=== PATIENT | male | born 1980 | race African-American/Black ===

== ENCOUNTER 2017-02-12 23:24 | Emergency (ER) | payer MEDICARE ==
[2017-02-12 23:28] VITALS: BP 109/70
[2017-02-12] MEDS ORDERED: FENTANYL PF 100 MCG/2 ML VIAL. IV PRN (23:45)
[2017-02-12] MEDS ORDERED: IV NORMAL SALINE 1000ML BAG 1,000 ML IV SCH (23:55)
[2017-02-13 00:03] LABS: BILIRUBIN,URINE NEGATIVE (NEG); GLUCOSE,URINE NEGATIVE (NEG); NITRITE,URINE NEGATIVE (NEG); PH,URINE 6.5; PROTEIN,URINE 30 mg/dL (NEG-TRACE)
[2017-02-13 00:08] LABS: BACTERIA,URINE 0 /HPF (0-FEW); WBC,URINE OCC /HPF (0-4)
[2017-02-13 00:09] LABS: SQUAMOUS EPITHELIAL CELL,UR FEW /LPF
[2017-02-13] MEDS ORDERED: ONDA4TAB10 SL (00:15)
[2017-02-13] MEDS ORDERED: MORP15TA PO (00:15)
--- NOTE | 2017-02-13 00:16 | PHYS DOC ---
Past Medical History Past Medical History: No Pertinent History Past Surgical History: No Surgical History Alcohol Use: Occasionally Drug Use: Marijuana Adult General Chief Complaint Chief Complaint: FLANK PAIN HPI HPI 36-year-old male presenting to the emergency department with left-sided flank pain for the past 3 days. His pain is sharp moderate intermittent and without alleviating factors. he denies hematuria. he denies history of kidney stone. Review of systems is negative for nausea vomiting fevers chills chest pain shortness of breath. All other review of systems is negative unless otherwise noted in history of present illness. Review of Systems Review of Systems SEE ABOVE. Current Medications Current Medications Current Medications Medications (Trade) Dose Ordered Sig/Eufemia Start Time Stop Time Status Last Admin Dose Admin Fentanyl Citrate 50 mcg 50 mcg PRN Q15MIN PRN 02/12/17 23:45 02/13/17 01:09 DC 02/13/17 00:31 50 MCG Sodium Chloride (Iv Sodium Chloride 0.9% 1000ml Bag) 1,000 ml @ 1,000 mls/hr Q1H 02/12/17 23:55 02/13/17 00:54 DC 02/12/17 23:55 1,000 MLS/HR Allergies Allergies Allergies Coded Allergies Type Severity Reaction Last Updated Verified No Known Drug Allergies 02/12/17 No Physical Exam Physical Exam Constitutional: Well developed, well nourished, no acute distress, non-toxic appearance. HENT: Normocephalic, atraumatic, bilateral external ears normal, oropharynx moist, no oral exudates, nose normal. [] Eyes: PERRLA, EOMI, conjunctiva normal, no discharge. Neck: Normal range of motion, no tenderness, supple, no stridor. [] Cardiovascular:Heart rate regular rhythm, no murmur Lungs & Thorax: Bilateral breath sounds clear to auscultation [] Abdomen: Soft nontender abdomen without rebound tenderness or guarding present. Negative McBurneys point. Negative Medina sign. No ecchymosis present. Skin: Warm, dry, no erythema, no rash. Back: No tenderness, CVA tenderness present. Extremities: No tenderness, no cyanosis, no clubbing, ROM intact, no edema. [] Neurologic: Alert and oriented X 3, normal motor function, normal sensory function, no focal deficits noted. Psychologic: Affect normal, judgement normal, mood normal. [] Current Patient Data Vital Signs Vital Signs Date Time Temp Pulse Resp B/P Pulse Ox O2 Delivery O2 Flow Rate FiO2 02/12/17 23:28 97.9 67 22 109/70 99 Room Air 97.9 Lab Values Laboratory Tests Test 02/12/17 23:55 02/13/17 00:22 Urine Collection Type Unknown Urine Color Christy Urine Clarity Cloudy Urine pH 6.5 Urine Specific [place] >=1.030 Urine Protein 30mg/dL (NEG-TRACE) Urine Glucose (UA) Negativemg/dL (NEG) Urine Ketones (Stick) Tracemg/dL (NEG) Urine Blood Negative (NEG) Urine Nitrite Negative (NEG) Urine Bilirubin Negative (NEG) Urine Urobilinogen Dipstick 1.0mg/dL (0.2 mg/dL) Urine Leukocyte Esterase Negative (NEG) Urine RBC 6-10/HPF (0-2) Urine WBC Occ/HPF (0-4) Urine Squamous Epithelial Cells Few/LPF Urine Bacteria 0/HPF (0-FEW) Urine Mucus Marked/LPF White Blood Count 10.0x10^3/uL (4.0-11.0) Red Blood Count 4.53x10^6/uL (4.30-5.70) Hemoglobin 14.5g/dL (13.0-17.5) Hematocrit 43.8% (39.0-53.0) Mean Corpuscular Volume 97fL (79-100) Mean Corpuscular Hemoglobin 32pg (25-35) Mean Corpuscular Hemoglobin Concent 33g/dL (31-37) Red Cell Distribution Width 13.1% (11.5-14.5) Platelet Count 196x10^3/uL (140-400) Neutrophils (%) (Auto) 71% (31-73) Lymphocytes (%) (Auto) 23% (24-48) L Monocytes (%) (Auto) 5% (0-9) Eosinophils (%) (Auto) 1% (0-3) Basophils (%) (Auto) 1% (0-3) Neutrophils # (Auto) 7.1x10^3uL (1.8-7.7) Lymphocytes # (Auto) 2.2x10^3/uL (1.0-4.8) Monocytes # (Auto) 0.5x10^3/uL (0.0-1.1) Eosinophils # (Auto) 0.1x10^3/uL (0.0-0.7) Basophils # (Auto) 0.1x10^3/uL (0.0-0.2) Sodium Level 145mmol/L (136-145) Potassium Level 3.6mmol/L (3.5-5.1) Chloride Level 105mmol/L (98-107) Carbon Dioxide Level 27mmol/L (21-32) Anion Gap 13 (6-14) Blood Urea Nitrogen 19mg/dL (8-26) Creatinine 1.0mg/dL (0.7-1.3) Estimated GFR (Cockcroft-Gault) 101.7 Glucose Level 128mg/dL (70-99) H Calcium Level 8.5mg/dL (8.5-10.1) Laboratory Tests 02/13/17 00:22 Laboratory Tests 02/13/17 00:22 EKG EKG [] Radiology/Procedures Radiology/Procedures [] Course & Med Decision Making Course & Med Decision Making Pertinent Labs and Imaging studies reviewed. (See chart for details) [] 36-year-old male presenting with left-sided flank pain. Urinalysis obtained along with blood work. Vital signs afebrile with a normal heart rate. Pertinent physical exam findings showed mild left CVA tenderness. Urinalysis negative for infection. No blood present. specific gravity elevated. The patient was treated with IV fluids and pain medication. On reexamination he had improved and was feeling better. He was subsequently discharged home to follow-up with his PCP over the next 2-3 days to return to the emergency department if his symptoms worsened. [id number] discharge instructions and return precautions given. Patient comfortable with plan. Dragon Disclaimer Dragon Disclaimer This electronic medical record was generated, in whole or in part, using a voice recognition dictation system. Departure Departure Impression: Primary Impression: Left flank pain Disposition: HOME, SELF-CARE Condition: STABLE Referrals: BERTA LEBLANC MD Patient Instructions: Flank Pain Additional Instructions: Thank you for allowing us to participate in your care today. Followup with your primary care physician in 3 days if your symptoms do not improve. If you do not have a primary care provider you can ask for a list of our primary care providers. Return to the emergency department you have any new or concerning findings. This should be evaluated by the primary care physician and any necessary consulting services for continued management within a few days after discharge. Return to emergency room if you have any new or concerning symptoms including but not limited to fever, chills, nausea, vomiting, intractable pain, any new rashes, chest pain, shortness of air, uncontrolled bleeding, difficulty breathing, and/or vision loss. You may have been prescribed medication that can change in your level of thinking and ability to operate machinery. These medications include hydrocodone and Ativan. Also, Benadryl has been known to do this as well. Be sure to check with your pharmacist and ask if the medications you've prescribed can affect your level of consciousness. I recommend not operating heavy machinery or driving while on medication such as these. Scripts Ondansetron (Zofran Odt)4 Mg Tab.rapdis1 Tab SL PRN Q8HRS PRN NAUSEA #6 TAB Prov:MAIDA MATHUR MD 02/13/17 Morphine Sulfate 15 Mg Tablet1 Tab PO PRN Q6-8HRS PRN SEVERE PAIN #8 TAB Prov:MAIDA MATHUR MD 02/13/17 MAIDA MATHUR MD Feb 13, 2017 00:16
[2017-02-13 00:27] LABS: BASO # 0.1 x10^3/uL (0.0-0.2); BASO % 1 % (0-3); EOS % 1 % (0-3); HEMATOCRIT 43.8 % (39.0-53.0); HEMOGLOBIN 14.5 g/dL (13.0-17.5); LYMPH # 2.2 x10^3/uL (1.0-4.8); LYMPH % 23 % (24-48); MEAN CORPUSCULAR HEMOGLOBIN 32 pg (25-35); MEAN CORPUSCULAR HGB CONC 33 g/dL (31-37); MEAN CORPUSCULAR VOLUME 97 fL (79-100); MONO % 5 % (0-9); NEUT % 71 % (31-73); PLATELET COUNT 196 x10^3/uL (140-400); RED BLOOD COUNT 4.53 x10^6/uL (4.30-5.70); RED CELL DISTRIBUTION WIDTH 13.1 % (11.5-14.5)
[2017-02-13 00:40] LABS: CALCIUM 8.5 mg/dL (8.5-10.1); GFR 101.7; POTASSIUM 3.6 mmol/L (3.5-5.1)
--- NOTE | 2017-02-13 00:40 | RAD ---
INDICATION: Abdomen pain. COMPARISON: None TECHNIQUE: Axial CT images obtained through the abdomen and pelvis. Intravenous contrast was not utilized. One or more of the following individualized dose reduction techniques were utilized for this examination: 1. Automated exposure control; 2. Adjustment of the mA and/or kV according to patient size; 3. Use of iterative reconstruction technique. FINDINGS: Abdominal aorta not aneurysmal. No intrahepatic bile duct dilation. Pancreas poorly evaluated without contrast. Spleen unremarkable. No hydronephrosis. No definite evidence of small bowel obstruction. Bladder decompressed large amount of stool within the distal colon. Moderate amount of stool elsewhere within the colon. The cecum is distended up to 76 millimeters. Appendix is not visualized given the lack of intravenous and oral contrast as well as lack of intra-abdominal fat. Mild scoliotic curvature spine IMPRESSION: There is moderate amount of stool seen throughout the colon with a large amount seen distally. Would correlate with symptoms of constipation. No hydronephrosis. Electronically signed by: Freddie Duval (Feb 13, 2017 00:39:26)
== END 2017-02-13 01:02 | disposition home or self-care (01) ==
LOC: ER 23:24
DX: R10.9 Unspecified abdominal pain (principal); K59.00 Constipation, unspecified; F12.10 Cannabis abuse, uncomplicated
CPT/HCPCS: 36415; 74176; 80048; 81001; 85027; 96361; 96374; 99285; J3010; J7030

== ENCOUNTER 2017-02-16 09:27 | Emergency (ER) | payer MEDICARE ==
[~2017-02-16] VITALS: Ht 185.4 cm; Wt 65.8 kg
[~2017-02-16 09:27] MED LIST: MORP15TA PO; ONDA4TAB10 SL
[2017-02-16] MEDS ORDERED: ORPHENADRINE CITRATE 60 MG/2 ML VIAL. IM ONE (10:45)
[2017-02-16] MEDS ORDERED: KETOROLAC TROMETHAMINE 60 MG/2 ML INJ. IM ONE (10:45)
[2017-02-16] MEDS ORDERED: CYCL10TA2 PO (11:01)
[2017-02-16] MEDS ORDERED: IBUP-1060 PO (11:01)
--- NOTE | 2017-02-16 11:01 | PHYS DOC ---
Past Medical History Past Medical History: Bipolar Additional Past Medical Histor: psyche dx. (unknown) Past Surgical History: No Surgical History Alcohol Use: Occasionally Drug Use: Marijuana Adult General Chief Complaint Chief Complaint: FLANK PAIN HPI HPI This is a 36-year-old male who states he's had continued left flank pain for the last 4-5 days. Patient was seen in the department several days ago and had a CT at that time that did not reveal any acute abnormality. He states he was sent home with pain meds but his symptoms have not improved. He states his pain is worse with motion. He denies any recent traumatic injury or event for which he can explain his symptoms. He localizes also pain to the left flank area. He denies any dysuria or hematuria. He denies any abdominal pain. Denies any fever or chills. He states he does not take any medications but does not follow up with any physician. My initial evaluation the patient speaking in complete signs is in no acute respiratory distress. He does not state he has any pain unless he moves or bends in one direction. Review of Systems Review of Systems Constitutional: Denies fever or chills [] Eyes: Denies change in visual acuity, redness, or eye pain [] HENT: Denies nasal congestion or sore throat [] Respiratory: Denies cough or shortness of breath [] Cardiovascular: No additional information not addressed in HPI [] GI: Denies abdominal pain, nausea, vomiting, bloody stools or diarrhea [] : Denies dysuria or hematuria [] Musculoskeletal: Has back pain, denies joint pain [] Integument: Denies rash or skin lesions [] Neurologic: Denies headache, focal weakness or sensory changes [] Endocrine: Denies polyuria or polydipsia [] Current Medications Current Medications Current Medications Medications (Trade) Dose Ordered Sig/Eufemia Start Time Stop Time Status Last Admin Dose Admin Ketorolac Tromethamine (Toradol Im) 60 mg 1X ONCE 02/16/17 10:45 02/16/17 10:46 DC 02/16/17 11:41 60 MG Orphenadrine Citrate (Norflex) 60 mg 1X ONCE 02/16/17 10:45 02/16/17 10:46 DC 02/16/17 11:42 60 MG Allergies Allergies Allergies Coded Allergies Type Severity Reaction Last Updated Verified No Known Drug Allergies 4/9/17 No Physical Exam Physical Exam Constitutional: Well developed, well nourished, no acute distress, non-toxic appearance. [] HENT: Normocephalic, atraumatic, bilateral external ears normal, oropharynx moist, no oral exudates, nose normal. [] Eyes: PERRLA, EOMI, conjunctiva normal, no discharge. [] Neck: Normal range of motion, no tenderness, supple, no stridor. [] Cardiovascular:Heart rate regular rhythm, no murmur [] Lungs & Thorax: Bilateral breath sounds clear to auscultation [] Abdomen: Bowel sounds normal, soft, no tenderness, no masses, no pulsatile masses. [] Skin: Warm, dry, no erythema, no rash. [] Back: No tenderness, left CVA tenderness, there is no obvious bruising or deformity, there is no crepitus. [] Extremities: No tenderness, no cyanosis, no clubbing, ROM intact, no edema. [] Neurologic: Alert and oriented X 3, normal motor function, normal sensory function, no focal deficits noted. [] Psychologic: Affect normal, judgement normal, mood normal. [] Current Patient Data Vital Signs Vital Signs Date Time Temp Pulse Resp B/P Pulse Ox O2 Delivery O2 Flow Rate FiO2 02/16/17 10:05 97.5 54 18 115/65 98 Room Air 97.5 EKG EKG [] Radiology/Procedures Radiology/Procedures [] Course & Med Decision Making Course & Med Decision Making Pertinent Labs and Imaging studies reviewed. (See chart for details) This 36-year-old male had a full laboratory workup including a CT of his abdomen and pelvis without contrast several days ago and this was negative for any abnormality. His symptoms seem likely musculoskeletal. An IM injection of Toradol and Norflex were given. I will be prescribing him Motrin and muscle relaxants and he'll follow closely for his symptoms. The patient is to continue to use heat to the affected area and to avoid any strenuous activities as his symptoms are likely muscular in nature. He'll follow closely in the next several days. Dragon Disclaimer Dragon Disclaimer This electronic medical record was generated, in whole or in part, using a voice recognition dictation system. Departure Departure Impression: Primary Impression: Left flank pain Disposition: 01 HOME, SELF-CARE Admitting Physician: Other Condition: STABLE Referrals: NO PCP (PCP) Patient Instructions: Flank Pain, [id number] Additional Instructions: Please follow up with your primary doctor in the next 2-3 days for your flank pain. Use muscle relaxants and anti-inflammatories as prescribed. Use a heating pad to the affected area and avoid any strenuous activities. Return to the ER if you develop any worsening of your symptoms. Scripts Cyclobenzaprine Hcl 10 Mg [id number] Mg PO TID #10 TAB Prov:COMPA AREVALO DO 02/16/17 Ibuprofen 800 Mg [id number] Mg PO PRN Q6HRS PRN INFLAMMATION #20 TAB Prov:COMPA AREVALO DO 02/16/17 COMPA AREVALO DO Feb 16, 2017 11:01
[2017-02-16 11:30] VITALS: BP 119/74
== END 2017-02-16 11:45 | disposition home or self-care (01) ==
LOC: ER 09:27
DX: R10.9 Unspecified abdominal pain (principal); F31.9 Bipolar disorder, unspecified; F12.10 Cannabis abuse, uncomplicated
CPT/HCPCS: 96372; 99284; J1885; J2360

== ENCOUNTER 2017-04-10 19:05 | Emergency (ER) | payer MEDICARE ==
[~2017-04-10] VITALS: Ht 188 cm; Wt 63.5 kg
[~2017-04-10 19:05] MED LIST changes: +CYCL10TA2 PO; +IBUP-1060 PO
[2017-04-10 19:31] VITALS: BP 119/74
[2017-04-10] MEDS ORDERED: FAMO-63 PO (20:19)
[2017-04-10] MEDS ORDERED: DIPH25CA58 PO (20:19)
[2017-04-10] MEDS ORDERED: PRED-220 PO (20:19)
[2017-04-10] MEDS ORDERED: TRIA15OI TP (20:19)
--- NOTE | 2017-04-10 20:20 | PHYS DOC ---
Past Medical History Past Medical History: Bipolar Additional Past Medical Histor: psyche dx. (unknown) Past Surgical History: No Surgical History Alcohol Use: Occasionally Drug Use: Marijuana Adult General Chief Complaint Chief Complaint: INSECT BITE HPI HPI Patient is a 36 year old male with history of bipolar who presents with a pruritic rash that began 3 days ago. Patient denies any new soaps or laundry detergent or source for this rash. Review of Systems Review of Systems Constitutional: Denies fever or chills [] Eyes: Denies change in visual acuity, redness, or eye pain [] HENT: Denies nasal congestion or sore throat [] Musculoskeletal: Denies back pain or joint pain [] Integument: rash Neurologic: Denies headache, focal weakness or sensory changes [] Endocrine: Denies polyuria or polydipsia [] Allergies Allergies Allergies Coded Allergies Type Severity Reaction Last Updated Verified No Known Drug Allergies 02/12/17 No Physical Exam Physical Exam Constitutional: Well developed, well nourished, no acute distress, non-toxic appearance. [] HENT: Normocephalic, atraumatic, bilateral external ears normal, oropharynx moist, no oral exudates, nose normal. [] Eyes: PERRLA, EOMI, conjunctiva normal, no discharge. [] Skin: Bilateral upper and lower extremities with mild amount of erythematous papular rash Back: No tenderness, no CVA tenderness. [] Extremities: No tenderness, no cyanosis, no clubbing, ROM intact, no edema. [] Neurologic: Alert and oriented X 3, normal motor function, normal sensory function, no focal deficits noted. [] Psychologic: Affect normal, judgement normal, mood normal. [] Current Patient Data Vital Signs Vital Signs Date Time Temp Pulse Resp B/P (MAP) Pulse Ox O2 Delivery O2 Flow Rate FiO2 04/10/17 19:31 98.7 105 20 94 Room Air 98.7 04/10/17 19:30 125/62 (83) EKG EKG [] Radiology/Procedures Radiology/Procedures [] Course & Med Decision Making Course & Med Decision Making Pertinent Labs and Imaging studies reviewed. (See chart for details) Patient has contact dermatitis rash due to unknown cause. Discharged with prednisone, Pepcid and triamcinolone cream and Benadryl. Follow-up with church history professor in 2 weeks. Dragon Disclaimer Dragon Disclaimer This electronic medical record was generated, in whole or in part, using a voice recognition dictation system. Departure Departure Impression: Primary Impression: Contact dermatitis Disposition: 01 HOME, SELF-CARE Condition: STABLE Referrals: MONIKA REYNA MD (PCP) JAMES MANZANARES MD Follow-up with a church history professor or the provided church history professor or primary care doctor in 2 weeks Patient Instructions: Contact Dermatitis Additional Instructions: You were seen for contact dermatitis rash due to unknown cause. We put you on medicines to help with the symptoms. Take them as prescribed. Follow-up with your doctor or the provided church history professor in 2 weeks. Scripts Diphenhydramine Hcl (BENADRYL) 25 Mg Capsule 1 CAP PO Q4HRS W/A Y for RASH, #30 CAP 1 Refill Prov: AILEEN SPENCER APRN 04/10/17 Triamcinolone Acetonide (TRIAMCINOLONE ACETONIDE 0.1% OINT) 15 Gm Oint...g. 1 ADRIEL TP BID for WOUND CARE, #1 TUBE MIX WITH EUCERIN DIRECTED BY PHYSICIAN Prov: AILEEN SPENCER APRN 04/10/17 Famotidine (PEPCID) 20 Mg Tablet 20 MG PO DAILY, #14 TAB Prov: AILEEN SPENCER APRN 04/10/17 Prednisone (PREDNISONE) 10 Mg Tablet 10 MG PO UD for PREDNISONE TAPER, #39 TAB 0 Refills Take 3 tablets by mouth twice a day for 3 days, then take 2 tablets by mouth twice a day for 3 days, then take 1 tablet by mouth twice a day for 3 days, then take 1 tablet by mouth daily x 3 days, then stop. Prov: AILEEN SPENCER APRN 04/10/17 Problem Qualifiers Primary Impression: Contact dermatitis Contact dermatitis type: unspecified Contact dermatitis trigger: unspecified trigger Qualified Codes: L25.9 - Unspecified contact dermatitis, unspecified cause AILEEN SPENCER APRN Apr 10, 2017 20:20
== END 2017-04-10 20:34 | disposition home or self-care (01) ==
LOC: ER 19:05
DX: L25.9 Unspecified contact dermatitis, unspecified cause (principal); F31.9 Bipolar disorder, unspecified; F12.10 Cannabis abuse, uncomplicated
CPT/HCPCS: 99283

== ENCOUNTER 2021-08-20 19:08 | Emergency (ER) | payer MEDICARE ==
[~2021-08-20] VITALS: Ht 188 cm; Wt 63.0 kg
[~2021-08-20 19:08] MED LIST changes: +DIPH25CA58 PO; +FAMO-63 PO; +PRED-220 PO; +TRIA15OI TP
[2021-08-20 20:00] VITALS: BP 129/63
[2021-08-20] MEDS ORDERED: MORPHINE SULFATE 4 MG/ML INJ. IM ONE (21:45)
[2021-08-20] MEDS ORDERED: KETOROLAC 60 MG/2 ML VIAL. IM ONE (21:45)
[2021-08-20] MEDS ORDERED: CYCL10TA2 PO (21:47)
[2021-08-20] MEDS ORDERED: IBUP-1007 PO (21:47)
--- NOTE | 2021-08-20 21:50 | PHYS DOC ---
Past Medical History Past Medical History: Bipolar Additional Past Medical Histor: psyche dx. (unknown) (JANELLE CRUZ WARD SECRETARY) Past Surgical History: No Surgical History (JANELLE CRUZ WARD SECRETARY) Smoking Status: Never Smoker Alcohol Use: Occasionally Drug Use: Marijuana (JANELLE CRUZ WARD SECRETARY) General Adult EDM: Chief Complaint: LOWER BACK PAIN OR INJURY HPI: HPI: Patient is a 40 year old male who presents with with moving furniture today when he began having low back pain. He states present [facility] 2 years ago and injured his lower back open again about 4 months ago and went to and they gave him medication and muscle relaxers. States he went to [facility] tonight because of his back that they were too busy today he started in the problems. He states that he took a old muscle relaxer to help ease the pain tonight. He rates his pain a 7 out of 10 states is aching and nonradiating. Patient denies numbness or tingling or focal weakness. (JANELLE CRUZ WARD SECRETARY) Review of Systems: Review of Systems: Constitutional: Denies fever or chills. [] Eyes: Denies change in visual acuity. [] HENT: Denies nasal congestion or sore throat. [] Respiratory: Denies cough or shortness of breath. [] Cardiovascular: Denies chest pain or edema. [] GI: Denies abdominal pain, nausea, vomiting, bloody stools or diarrhea. [] : Denies dysuria. [] Musculoskeletal: + Lower back pain or denies joint pain. [] Integument: Denies rash. [] Neurologic: Denies headache, focal weakness or sensory changes. [] Endocrine: Denies polyuria or polydipsia. [] Lymphatic: Denies swollen glands. [] Psychiatric: Denies depression or anxiety. [] (JANELLE CRUZ WARD SECRETARY) Heart Score: C/O Chest Pain: No (JANELLE CRUZ WARD SECRETARY) Allergies: Allergies: Allergies Coded Allergies Type Severity Reaction Last Updated Verified No Known Drug Allergies 02/12/17 No (JANELLE CRUZ WARD SECRETARY) Physical Exam: PE: Constitutional: Well developed, well nourished, no acute distress, non-toxic appearance. [] HENT: Normocephalic, atraumatic, bilateral external ears normal, oropharynx moist, no oral exudates, nose normal. [] Eyes: PERRLA, EOMI, conjunctiva normal, no discharge. [] Neck: Normal range of motion, no tenderness, supple, no stridor. [] Cardiovascular:Heart rate regular rhythm, no murmur [] Lungs & Thorax: Bilateral breath sounds clear to auscultation [] Abdomen: Bowel sounds normal, soft, no tenderness, no masses, no pulsatile masses. [] Skin: Warm, dry, no erythema, no rash. [] Back: No tenderness, no CVA tenderness. [] Extremities: No tenderness, no cyanosis, no clubbing, ROM intact, no edema. [] Neurologic: Alert and oriented X 3, normal motor function, normal sensory function, no focal deficits noted. [] Psychologic: Affect normal, judgement normal, mood normal. [] Normal physical exam (JANELLE CRUZ APRN) Current Patient Data: Vital Signs: Vital Signs Date Time Temp Pulse Resp B/P (MAP) Pulse Ox O2 Delivery O2 Flow Rate FiO2 08/20/21 20:00 97.7 56 16 129/63 (85) 98 Room Air 97.7 (JANELLE CRUZ APRN) EKG: EKG: [] (JANELLE CRUZ APRN) Radiology/Procedures: Radiology/Procedures: [] (JANELLE CRUZ APRN) Course & Med Decision Making: Course & Med Decision Making Pertinent Labs and Imaging studies reviewed. (See chart for details) See HPI. Alert and oriented x4. Ambulatory with a steady gait. Speaks in full clear sentences. No saddle paresthesia. Denies loss of bowel or bladder. No focal weakness moving all extremities equally with equal strengths. Neurologically intact. No focal bony spinal tenderness. Patient is given morphine IM and Toradol. Patient is told to follow-up with his primary care provider. [] (JANELLE CRUZ APRN) Course & Med Decision Making I have participated in the care of this patient and I have reviewed and agree with all pertinent clinical information above including history, exam, and recommendations. (ROBERT GIRALDO DO) Tate Disclaimer: Tate Disclaimer: This electronic medical record was generated, in whole or in part, using a voice recognition dictation system. (JANELLE CRUZ APRN) Departure Departure Impression: Primary Impression: Low back pain Qualified Codes: M54.50 - Low back pain, unspecified; G89.29 - Other chronic pain Disposition: HOME / SELF CARE / HOMELESS Condition: STABLE Referrals: MONIKA REYNA MD (PCP) Patient Instructions: Low Back Strain with [facility] Additional Instructions: Follow-up with your primary care doctor soon as possible. Could also call as there is a on-call doctor he can speak to. Take medication as prescribed with food. Do not drink or drive as his medications will make you sleepy. Drink plenty of fluids. Scripts Ibuprofen (IBUPROFEN) 600 Mg Tablet 600 MG PO PRN Q6HRS PRN for INFLAMMATION, #25 TAB Prov: JANELLE CRUZ APRN 08/20/21 Cyclobenzaprine Hcl (CYCLOBENZAPRINE HCL) 10 Mg Tablet 1 TAB PO TID, #15 TAB Prov: JANELLE CRUZ APRN 08/20/21 JANELLE CRUZ APRN Aug 20, 2021 21:50 ROBERT GIRALDO DO Aug 20, 2021 23:10
== END 2021-08-20 22:02 | disposition home or self-care (01) ==
LOC: ER 19:08
DX: M54.59 Other low back pain (principal); G89.29 Other chronic pain; F31.9 Bipolar disorder, unspecified
CPT/HCPCS: 96372; 99283; J1885